=== PATIENT | male | born 1970 | race Two or more races ===

== ENCOUNTER 2024-01-27 20:34 | Emergency (ER) | payer MEDICAID, SELFPAY ==
[2024-01-27 20:34] VITALS: BMI 22.8
[2024-01-27 20:46] VITALS: BP 135/75
[2024-01-28 00:30] VITALS: BP 122/69
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
[2024-01-28] MEDS: ADACEL 0.5 ML IM (01:21)
[2024-01-28 03:45] VITALS: BP 111/77
[2024-01-28] MEDS: AUGMENTIN 875 MG/125 MG 1 TABLET PO (03:58)
[2024-01-28 04:05] VITALS: BP 111/77
== END 2024-01-28 04:05 | disposition home or self-care (01) ==
LOC: EMR 20:34
PROVIDERS: EMERGENCY PHYSICIAN Student in an Organized Health Care Education/Training Program; FAMILY PHYSICIAN Internal Medicine
DX: S62.632B Displaced fracture of distal phalanx of right middle finger, initial encounter for open fracture (principal); W23.2XXA Caught, crushed, jammed or pinched between a moving and stationary object, initial encounter; R03.0 Elevated blood-pressure reading, without diagnosis of hypertension; Z23 Encounter for immunization
CPT/HCPCS: 99284; 12032; 90471; 73140; 90715